=== PATIENT | female | born 1995 | race Caucasian/White ===

== ENCOUNTER 2021-11-17 19:48 | Inpatient (IN) | payer OTHER ==
[~2021-11-17] VITALS: Ht 167.6 cm; Wt 74.4 kg
[2021-11-17 20:30] LABS: HCT 33.4 % (37.0-47.0); HGB 11.6 g/dl (12.5-16.0); MCH 35.4 pg (25.0-31.0); MCHC 34.7 g/dL (32.0-36.0); MCV 101.8 fL (78.0-100.0); MPV 9.7 fL (6.0-9.5); RBC 3.28 M/uL (4.20-5.40); WBC 7.1 K/uL (4.0-10.5)
[2021-11-17 20:31] LABS: BILIRUBIN NEGATIVE (NEGATIVE); BLOOD NEGATIVE Ery/uL (NEGATIVE); CLARITY CLEAR (CLEAR); COLOR YELLOW (YELLOW); GLUCOSE (U) NORMAL (NORMAL); LEUKOCYTES NEGATIVE Leu/uL (NEGATIVE); NITRITE NEGATIVE (NEGATIVE); PROTEIN NEGATIVE (NEGATIVE); SPECIFIC GRAVITY 1.015 (1.001-1.030); UROBILINOGEN 0.2 mg/dL (0.2-1.0)
[2021-11-19 06:40] LABS: HCT 30.1 % (37.0-47.0); HGB 10.3 g/dl (12.5-16.0); MCH 34.9 pg (25.0-31.0); MCHC 34.2 g/dL (32.0-36.0); MPV 9.6 fL (6.0-9.5); RBC 2.95 M/uL (4.20-5.40); RDW 11.4 % (11.5-14.0); WBC 10.8 K/uL (4.0-10.5)
[2021-11-21] MEDS ORDERED: FIORICET1 EACH PO (15:17)
== END 2021-11-20 16:09 | disposition home or self-care (01) | DRG 806 ==
LOC: FOB 19:48
PROVIDERS: ADMIT Obstetrics & Gynecology
PROC: 10E0XZZ Delivery of Products of Conception, External Approach (ICD-10-PCS; principal; 2021-11-18)
PROC: 4A1HXCZ Monitoring of Products of Conception, Cardiac Rate, External Approach (ICD-10-PCS; 2021-11-18)
PROC: 3E0P7VZ Introduction of Hormone into Female Reproductive, Via Natural or Artificial Opening (ICD-10-PCS; 2021-11-18)
PROC: 0UQMXZZ Repair Vulva, External Approach (ICD-10-PCS; 2021-11-18)
DX: O36.5930 Maternal care for other known or suspected poor fetal growth, third trimester, not applicable or unspecified (principal); D62 Acute posthemorrhagic anemia; Z37.0 Single live birth; O99.513 Diseases of the respiratory system complicating pregnancy, third trimester; Z3A.39 39 weeks gestation of pregnancy; J45.909 Unspecified asthma, uncomplicated; O70.1 Second degree perineal laceration during delivery; O90.81 Anemia of the puerperium; O71.82 Other specified trauma to perineum and vulva; O99.824 Streptococcus B carrier state complicating childbirth
CPT/HCPCS: 36415; 81003; 86850; 86900; 86901; 90707; J0595; J2405; J2540; J7120

== ENCOUNTER 2021-11-21 12:05 | Emergency (ER) | payer OTHER ==
[2021-11-21 13:05] LABS: BASOPHIL 0.6 % (0-2); EOSINOPHIL 2.4 % (0-5); HCT 34.7 % (37.0-47.0); HGB 11.9 g/dl (12.5-16.0); LYMPHOCYTE 24.6 % (15-48); MCHC 34.3 g/dL (32.0-36.0); MCV 102.1 fL (78.0-100.0); MONOCYTE 6.3 % (0-12); MPV 9.1 fL (6.0-9.5); NEUTROPHIL 65.5 % (41-80); NRBC 0; PLT 237 K/uL (150-400); RDW 11.5 % (11.5-14.0); WBC 7.1 K/uL (4.0-10.5)
[2021-11-21 13:49] LABS: BUN/CREAT RATIO (CALC) 18.6 RATIO; CREATININE 0.43 mg/dL (0.51-0.95); POTASSIUM 3.5 mmol/L (3.5-5.1)
[2021-11-21 15:07] LABS: BILIRUBIN NEGATIVE (NEGATIVE); BLOOD 3+ Ery/uL (NEGATIVE); COLOR YELLOW (YELLOW); GLUCOSE (U) NORMAL (NORMAL); LEUKOCYTES 1+ Leu/uL (NEGATIVE); NITRITE NEGATIVE (NEGATIVE); PROTEIN NEGATIVE (NEGATIVE); SPECIFIC GRAVITY 1.015 (1.001-1.030); UROBILINOGEN 0.2 mg/dL (0.2-1.0)
[2021-11-21 15:08] LABS: CLARITY HAZY (CLEAR)
[2021-11-21] MEDS ORDERED: FIORICET1 EACH PO (15:17)
[2021-11-21 15:18] LABS: SQUAMOUS EPITHELIAL CELLS RARE
== END 2021-11-21 15:40 | disposition home or self-care (01) ==
LOC: FER 12:05
PROVIDERS: Nurse Practitioner Family
DX: G43.909 Migraine, unspecified, not intractable, without status migrainosus (principal)
CPT/HCPCS: 36415; 80048; 81001; 85025; 99283; J7030